=== PATIENT | female | born 1970 | race African-American/Black ===

== ENCOUNTER 2020-03-05 00:58 | Emergency (ER) | payer BC ==
[~2020-03-05] VITALS: Ht 162.6 cm; Wt 83.9 kg
[2020-03-05 01:06] VITALS: Ht 162.6 cm; Wt 83.9 kg
[2020-03-05 02:14] VITALS: BP 95/47
== END 2020-03-05 02:14 | disposition home or self-care (01) ==
LOC: ED 00:58
DX: M62.838 Other muscle spasm (principal); Z88.8 Allergy status to other drugs, medicaments and biological substances
CPT/HCPCS: J1885